=== PATIENT | male | born 1995 | race Caucasian/White ===

== ENCOUNTER 2017-06-01 08:30 | Emergency (ER) | payer OTHER ==
[~2017-06-01] VITALS: Ht 177.8 cm; Wt 79.4 kg
--- NOTE | 2017-06-01 08:56 | NUR ---
at the bedside.
[2017-06-01] MEDS ORDERED: IBUPROFEN 800 MG TABLET PO ONE (09:15)
[2017-06-01] MEDS ORDERED: IBUPROFEN 800 MG TABLET ONE (09:23)
--- NOTE | 2017-06-01 09:52 | NUR ---
pt returned from ct scan.
--- NOTE | 2017-06-01 10:29 | NUR ---
mse completed, pt had rt posterior fiberglass short leg splint placed, crutch traing and crutches dispensed. pt demonstrated proper crutch use, aci/rx x1 given. pt took all belongings.
[2017-06-01 10:33] VITALS: BP 138/90
== END 2017-06-01 10:34 | disposition home or self-care (01) ==
LOC: ER 08:30 → EDBD 08:30 → ER 10:34
DX: S06.0X0A Concussion without loss of consciousness, initial encounter (principal); S16.1XXA Strain of muscle, fascia and tendon at neck level, initial encounter; V49.9XXA Car occupant (driver) (passenger) injured in unspecified traffic accident, initial encounter; Y93.89 Activity, other specified; Y92.413 State road as the place of occurrence of the external cause; Y99.8 Other external cause status
CPT/HCPCS: 29515; 70450; 72125; 73610; 73630; 99284; A4663